=== PATIENT | female | born 1985 | race Caucasian/White ===

== ENCOUNTER → 2020-01-02 | Outpatient (CLI) | payer OTHER ==
[2020-01-02 10:40] LABS: BASO % 0.6 % (0.0-1.0); EOS # 0.2 10^3/uL (0.0-0.5); EOS % 2.9 % (0.0-3.0); HEMATOCRIT 42.3 % (36.0-47.0); HEMOGLOBIN 13.9 g/dl (12.0-15.5); LYMPH # 2.7 10^3/uL (1.5-5.0); LYMPH % 40.9 % (24.0-44.0); MEAN CORPUSCULAR HEMOGLOBIN 28.7 pg (27.0-33.0); MEAN CORPUSCULAR HGB CONC 32.9 g/dl (32.0-36.5); MEAN CORPUSCULAR VOLUME 87.4 fl (80.0-96.0); MONO # 0.4 10^3/uL (0.0-0.8); MONO % 6.1 % (0.0-5.0); NEUTROPHILS # 3.2 10^3/uL (1.5-8.5); NEUTROPHILS % 49.3 % (36.0-66.0); PLATELET COUNT, AUTOMATED 374 10^3/uL (150-450); RED BLOOD COUNT 4.84 10^6/uL (4.00-5.40); WHITE BLOOD COUNT 6.5 10^3/uL (4.0-10.0)
[2020-01-02 10:58] LABS: HEMOGLOBIN A1c 5.3 %
[2020-01-02 11:23] LABS: ALBUMIN 4.1 GM/DL (3.2-5.2); ALT/SGPT 32 U/L (12-78); BILIRUBIN,TOTAL 0.5 MG/DL (0.2-1.0); BLOOD UREA NITROGEN 13 MG/DL (7-18); CALCIUM LEVEL 9.2 MG/DL (8.5-10.1); CARBON DIOXIDE LEVEL 27 MEQ/L (21-32); CHLORIDE LEVEL 104 MEQ/L (98-107); CHOLESTEROL LEVEL 156 MG/DL (<200); CREATININE FOR GFR 0.71 MG/DL (0.55-1.30); FREE T4 1.23 NG/DL (0.76-1.46); GLOMERULAR FILTRATION RATE > 60.0 (>60); GLUCOSE, FASTING 80 MG/DL (70-100); HDL CHOLESTEROL 60 MG/DL (>40); LDL CHOLESTEROL 78 MG/DL (<100); NON-HDL-C 96 MG/DL; POTASSIUM SERUM 3.9 MEQ/L (3.5-5.1); SODIUM LEVEL 138 MEQ/L (136-145); THYROID STIMULATING HORMONE 0.467 uIU/ML (0.358-3.740); TOTAL PROTEIN 8.1 GM/DL (6.4-8.2); TRIGLYCERIDES LEVEL 89 MG/DL (<150)
[2020-01-02 12:32] LABS: TOTAL 25(OH) VITAMIN D 16.7 NG/ML (30.0-100.0)
== END ==
LOC: M LAB 09:19
PROVIDERS: ATTEND Physician Assistant
DX: Z13.220 Encounter for screening for lipoid disorders (principal); Z13.29 Encounter for screening for other suspected endocrine disorder

== ENCOUNTER → 2020-01-16 | Outpatient (REF) | payer OTHER | LOC: M LAB REF 17:25 | PROVIDERS: ATTEND Family Medicine | DX: J02.9 Acute pharyngitis, unspecified (principal) ==

== ENCOUNTER → 2020-04-07 | Outpatient (REF) | payer OTHER | LOC: M LAB REF 17:10 | PROVIDERS: ATTEND Physician Assistant | DX: J03.00 Acute streptococcal tonsillitis, unspecified (principal) ==

== ENCOUNTER → 2020-05-19 | Outpatient (REF) | payer OTHER | LOC: M LAB REF 16:30 | PROVIDERS: ATTEND Physician Assistant | DX: N30.01 Acute cystitis with hematuria (principal) ==

== ENCOUNTER → 2020-10-13 | Outpatient (CLI) | payer OTHER ==
[2020-10-13 12:45] LABS: C REACTIVE PROTEIN QUANTITATIV < 0.30 MG/DL (0.00-0.30); RHEUMATOID FACTOR QUANT < 10.0 IU/ML (<15.0)
== END ==
LOC: M LAB 11:03
PROVIDERS: ATTEND Family Medicine
DX: M25.551 Pain in right hip (principal); M25.552 Pain in left hip

== ENCOUNTER → 2020-10-17 | Outpatient (REF) | payer OTHER ==
[2020-10-17 13:56] LABS: APPEARANCE, URINE CLEAR (CLEAR); BACTERIA, URINE AUTO NEGATIVE (NEGATIVE); BILIRUBIN, URINE AUTO NEGATIVE (NEGATIVE); BLOOD, URINE BLOOD NEGATIVE (NEGATIVE); COLOR, URINE COLORLESS (YELLOW); GLUCOSE, URINE (UA) AUTO NEGATIVE (NEGATIVE); KETONE, URINE AUTO NEGATIVE (NEGATIVE); LEUKOCYTE ESTERASE, URINE AUTO NEGATIVE (NEGATIVE); NITRITE, URINE AUTO NEGATIVE (NEGATIVE); PROTEIN, URINE AUTO NEGATIVE (NEGATIVE); RBC, URINE AUTO 0 /HPF (0-3); SPECIFIC GRAVITY URINE AUTO 1.002 (1.002-1.035); SQUAMOUS EPITHELIAL CELL UR AU 0 /HPF (0-6); UROBILINOGEN, URINE AUTO 0.2 mg/dL (0.0-2.0); WBC, URINE AUTO 0 /HPF (0-3)
== END ==
LOC: M SMT 13:14
PROVIDERS: ATTEND Nurse Practitioner Women's Health
DX: R30.0 Dysuria (principal)

== ENCOUNTER → 2021-03-27 | Outpatient (CLI) | payer OTHER ==
[2021-03-27 12:15] LABS: BASO # 0.1 10^3/uL (0.0-0.2); BASO % 0.8 % (0.0-1.0); EOS # 0.2 10^3/uL (0.0-0.5); EOS % 2.1 % (0.0-3.0); HEMATOCRIT 41.7 % (36.0-47.0); HEMOGLOBIN 13.7 g/dl (12.0-15.5); LYMPH # 2.8 10^3/uL (1.5-5.0); LYMPH % 36.2 % (24.0-44.0); MEAN CORPUSCULAR HEMOGLOBIN 28.8 pg (27.0-33.0); MEAN CORPUSCULAR HGB CONC 32.9 g/dl (32.0-36.5); MEAN CORPUSCULAR VOLUME 87.6 fl (80.0-96.0); MONO # 0.6 10^3/uL (0.0-0.8); MONO % 7.5 % (2.0-8.0); NEUTROPHILS # 4.1 10^3/uL (1.5-8.5); NEUTROPHILS % 53.1 % (36.0-66.0); PLATELET COUNT, AUTOMATED 323 10^3/uL (150-450); RED BLOOD COUNT 4.76 10^6/uL (4.00-5.40); WHITE BLOOD COUNT 7.6 10^3/uL (4.0-10.0)
[2021-03-27 12:58] LABS: ALBUMIN 3.9 GM/DL (3.2-5.2); ALT/SGPT 24 U/L (12-78); BILIRUBIN,TOTAL 0.3 MG/DL (0.2-1.0); BLOOD UREA NITROGEN 11 MG/DL (7-18); CALCIUM LEVEL 8.8 MG/DL (8.5-10.1); CARBON DIOXIDE LEVEL 25 MEQ/L (21-32); CHLORIDE LEVEL 106 MEQ/L (98-107); CHOLESTEROL LEVEL 188 MG/DL (<200); CHOLESTEROL RISK RATIO 2.611 (<5); CREATININE FOR GFR 0.62 MG/DL (0.55-1.30); GLOMERULAR FILTRATION RATE > 60.0 (>60); GLUCOSE, FASTING 84 MG/DL (70-100); HDL CHOLESTEROL 72 MG/DL (>40); LDL CHOLESTEROL 102 MG/DL (<100); NON-HDL-C 116 MG/DL; POTASSIUM SERUM 4.1 MEQ/L (3.5-5.1); SODIUM LEVEL 138 MEQ/L (136-145); THYROID STIMULATING HORMONE 0.536 uIU/ML (0.358-3.740); TOTAL PROTEIN 7.9 GM/DL (6.4-8.2); TRIGLYCERIDES LEVEL 68 MG/DL (<150)
[2021-03-27 13:06] LABS: TOTAL 25(OH) VITAMIN D 33.8 NG/ML (30.0-100.0)
[2021-03-27 13:44] LABS: HEMOGLOBIN A1c 5.2 %
== END ==
LOC: M LAB 10:43
PROVIDERS: ATTEND Family Medicine
DX: Z13.220 Encounter for screening for lipoid disorders (principal); E55.9 Vitamin D deficiency, unspecified; Z13.29 Encounter for screening for other suspected endocrine disorder; Z13.0 Encounter for screening for diseases of the blood and blood-forming organs and certain disorders involving the immune mechanism

== ENCOUNTER → 2021-04-13 | Outpatient (CLI) | payer OTHER ==
[2021-04-13 13:00] LABS: ESTRADIOL 33.5 PG/ML; FOLLICLE STIMULATING HORMONE 7.3 mIU/mL; LUTEINIZING HORMONE 5.6 mIU/mL; PROGESTERONE 0.48 NG/ML
== END ==
LOC: M LAB 11:33
PROVIDERS: ATTEND Family Medicine
DX: R63.5 Abnormal weight gain (principal)

== ENCOUNTER → 2021-06-03 | Outpatient (REF) | payer OTHER ==
[2021-06-03 20:30] LABS: GC DNA AMPLIFICATION NEGATIVE (NEGATIVE)
== END ==
LOC: M LAB REF 16:58
PROVIDERS: ATTEND Family Medicine
DX: N76.0 Acute vaginitis (principal)

== ENCOUNTER → 2021-06-26 | Outpatient (CLI) | payer OTHER ==
--- NOTE | 2021-06-26 12:22 | REP ---
INDICATION: PELVIC/PERINEAL PAIN, HISTORY OF PCOS. COMPARISON: None. TECHNIQUE: TRANSABDOMINAL AND ENDOVAGINAL PROBES WITH COLOR AND DOPPLER INTERROGATION OF THE ADNEXA FINDINGS: THE BLADDER MEASURES 10 X 8.9 X 8.5 CM, ADEQUATELY FILLED AND UNREMARKABLE. UTERUS IS SURGICALLY ABSENT THE VAGINAL CUFF INTACT. NO FLUID ADJACENT THAT VAGINAL CUFF. THE RIGHT OVARY IS NOT SEEN ON TRANSABDOMINAL OR ENDOVAGINAL PROBES. NO RIGHT ADNEXAL MASS OR FLUID COLLECTION. THE LEFT OVARY IS 2.6 X 1.9 X 1.6 CM. IT HAS COLOR FLOW AND ON DOPPLER INTERROGATION THERE IS RESISTIVE INDEX 0.67, NORMAL. NO ADNEXAL MASS OR ADJACENT FLUID COLLECTIONS/FREE FLUID. IMPRESSION: 1. STATUS POST HYSTERECTOMY WITH VAGINAL CUFF INTACT. 2. THE LEFT OVARY IS UNREMARKABLE. NO MASS, ADJACENT FLUID OR EVIDENCE FOR TORSION. 3. THE RIGHT OVARY IS NOT VISUALIZED BY TRANSABDOMINAL OR ENDOVAGINAL PROBE IS ON THIS EXAMINATION. NO RIGHT ADNEXAL MASS OR FLUID COLLECTION IDENTIFIED TODAY . <Electronically signed by Yordan Guzman > 06/26/21 [id number]
== END ==
LOC: M RAD 10:30
PROVIDERS: ATTEND Family Medicine
DX: R10.2 Pelvic and perineal pain (principal); Z98.890 Other specified postprocedural states

== ENCOUNTER → 2021-09-14 | Outpatient (REF) | payer OTHER | LOC: M LAB REF 17:05 | PROVIDERS: ATTEND Physician Assistant | DX: J01.90 Acute sinusitis, unspecified (principal) ==

== ENCOUNTER → 2022-09-09 | Outpatient (CLI) | payer OTHER | LOC: M PLAIMG 12:37 | PROVIDERS: ATTEND Physician Assistant | DX: R42 Dizziness and giddiness (principal); R51.9 Headache, unspecified ==